=== PATIENT | female | born 1975 | race Caucasian/White ===

== ENCOUNTER 2016-06-21 21:42 | Emergency (ER) | payer MEDICAID ==
[~2016-06-21] VITALS: Ht 160 cm; Wt 77.3 kg
[~2016-06-21 21:42] MED LIST: FERR27TA; PREN-46 PO; PREN1TAB49; pnv PO
[2016-06-21 21:51] VITALS: Ht 160 cm; Wt 77.3 kg
--- NOTE | 2016-06-22 00:40 | RADRPT ---
PROCEDURE: XR Chest. CLINICAL INDICATION: Chest pain. TECHNIQUE: Portable AP upright view of the chest was obtained. COMPARISON: None. FINDINGS: The cardiomediastinal silhouette is within normal limits. The lungs are clear. There is no evidenc e for pleural effusion, pneumothorax or pulmonary vascular congestion. The osseous structures are i ntact with no evidence for acute abnormality. RPTAT:HJJR IMPRESSION: No evidence for acute intrathoracic pathology. Physician Alex Date Time Electronically viewed and signed by Physician Alex on 06/22/2016 00:40 JR/
[2016-06-22 01:10] LABS: URINE BLOOD (Dip) POC 2+ (NEGATIVE)
[2016-06-22 01:19] LABS: ADD SCAN DIFF NO
[2016-06-22 01:28] LABS: BASOPHILS % 0.5 % (0.0-2.0); EOSINOPHILS # 0.2 10^3/ul (0.0-0.5); EOSINOPHILS % 1.9 % (0.0-7.0); HEMATOCRIT 34.8 % (37.0-47.0); HEMOGLOBIN 11.1 g/dl (12.0-16.0); LYMPHOCYTES # 3.3 10^3/ul (0.8-2.9); LYMPHOCYTES % 42.8 % (15.0-51.0); MEAN CORPUSCULAR HEMOGLOBIN 25.1 pg (29.0-33.0); MEAN CORPUSCULAR HGB CONC 31.9 g/dl (32.0-37.0); MEAN CORPUSCULAR VOLUME 78.6 fl (82.0-101.0); MEAN PLATELET VOLUME 11.1 fl (7.4-10.4); MONOCYTE # 0.5 10^3/ul (0.3-0.9); MONOCYTES % 6.5 % (0.0-11.0); NEUTROPHIL # 3.7 10^3/ul (1.6-7.5); PLATELET COUNT 341 10^3/UL (140-415); RED BLOOD COUNT 4.43 10^6/ul (4.20-5.40); WHITE BLOOD COUNT 7.7 10^3/ul (4.8-10.8)
[2016-06-22] MEDS ORDERED: hydrALAzine 20 MG INJ IV ONE (01:30)
[2016-06-22 01:36] LABS: INR 0.94; PROTIME 12.6 Sec (12.2-14.2)
[2016-06-22 01:37] LABS: PARTIAL THROMBOPLASTIN TIME 30.9 Sec (25.0-35.0)
[2016-06-22 01:49] LABS: CHLORIDE 103 mmol/L (97-110); POTASSIUM 3.7 mmol/L (3.5-5.1); SODIUM 144 mmol/L (135-144)
[2016-06-22 01:52] LABS: ANION GAP 15 (8-16); BLOOD UREA NITROGEN 18 mg/dl (7-20); CARBON DIOXIDE 30 mmol/L (21-31); CREATININE 0.88 mg/dl (0.44-1.00); GLUCOSE 106 mg/dl (70-220)
[2016-06-22 01:53] LABS: CALCIUM 9.5 mg/dl (8.4-10.2)
[2016-06-22 02:26] LABS: TROPONIN-I < 0.010 ng/ml (0.00-0.12)
--- NOTE | 2016-06-22 02:26 | ERA ---
ER Documentation Chief Complaint Date/Time DATE: 06/22/16 Chief Complaint chest pain on and off x 1 week HPI The patient is a 40-year-old female, presenting to the ER because of sternal chest discomfort intermittently for more than 1 week. She was seen in the clinic was sent her to the ER because of high blood pressure She had intermittent headache, denies any headache now. She denies facial pain, neck pain, chest pain with exertion or vomiting or diaphoresis. She denies abdominal pain, vomiting, diarrhea, constipation. She does not smoke, drink or use illicit drug Past medical history: Anxiety Past surgical history: 3 C-sections ROS All systems reviewed and are negative except as per history of present illness. Medications Home Meds Active Scripts Amlodipine Besylate* (Norvasc*) 5 Mg Tablet, 5 MG PO DAILY, #30 TAB Prov:KJ SEARS MD 06/22/16 Reported Medications Vit #108/Iron/Fa ( ONE TABLET) 1 Each Tablet, 1 EACH PO 04/11/13 [pnv] No Conflict Check, PO DAILY, #1 04/05/13 Ferrous Sulfate (Iron) 1 Tab Tablet 07/28/10 Vits W-Ca,Fe,Fa(<1MG) () 1 Tab Tablet 07/28/10 Allergies Allergies: Coded Allergies: No Known Allergies (Verified Allergy, Mild, 07/28/10) PMhx/Soc Medical and Surgical Hx: pt denies Medical Hx History of Surgery: Yes ( X3) Anesthesia Reaction: No Hx Neurological Disorder: No Hx Respiratory Disorders: No Hx Cardiac Disorders: Yes (HTN WITH ) Hx Psychiatric Problems: No Hx Miscellaneous Medical Probl: No Hx Alcohol Use: No Hx Substance Use: No Hx Tobacco Use: No Smoking Status: Never smoker Physical Exam Vitals Vital Signs Date Time Temp Pulse Resp B/P Pulse Ox O2 Delivery O2 Flow Rate FiO2 06/22/16 00:38 Nasal Cannula 1 06/22/16 00:20 98.3 70 20 218/114 100 Room Air 06/21/16 21:51 97.8 78 20 175/99 10 Physical Exam Const: No acute distress. Head: Atraumatic. Eyes: Normal Conjunctiva. ENT: Normal External Ears, Nose and Mouth. Neck: Full range of motion. No meningismus. Resp: Clear to auscultation bilaterally. Cardio: Regular rate and rhythm, no murmurs. Abd: Soft, non distended, normal bowel sounds, non tender. Skin: No petechiae or rashes. Back: No midline or flank tenderness. Ext: No cyanosis, or edema. Neur: Awake and alert. No focal deficit Psych: Normal Mood and Affect. Result Diagram: 06/22/16 0030 06/22/16 0030 Results 24 hrs Laboratory Tests Test 06/22/16 00:30 06/22/16 01:12 Activated Partial Thromboplast Time 30.9Sec Anion Gap 15 Basophils # 0.010^3/ul Basophils % 0.5% Blood Urea Nitrogen 18mg/dl Calcium Level 9.5mg/dl Carbon Dioxide Level 30mmol/L Chloride Level 103mmol/L Creatinine 0.88mg/dl Eosinophils # 0.210^3/ul Eosinophils % 1.9% Glucose Level 106mg/dl Hematocrit 34.8% Hemoglobin 11.1g/dl INR International Normalized Ratio 0.94 Lymphocytes # 3.310^3/ul Lymphocytes % 42.8% Mean Corpuscular Hemoglobin 25.1pg Mean Corpuscular Hemoglobin Concent 31.9g/dl Mean Corpuscular Volume 78.6fl Mean Platelet Volume 11.1fl Monocytes # 0.510^3/ul Monocytes % 6.5% Neutrophils # 3.710^3/ul Neutrophils % 48.0% Nucleated Red Blood Cells # 0.010^3/ul Nucleated Red Blood Cells % 0.0/100WBC Platelet Count 59829^3/UL Potassium Level 3.7mmol/L Prothrombin Time 12.6Sec Prothrombin Time Ratio 1.0 Red Blood Count 4.4310^6/ul Red Cell Distribution Width 15.0% Serum HCG, Qualitative NEGATIVE Sodium Level 144mmol/L Troponin I < 0.010ng/ml White Blood Count 7.710^3/ul Bedside Urine Blood 2+ Bedside Urine Glucose (UA) Negative Bedside Urine Ketones (LAB) Negative Bedside Urine Leukocyte Esterase (L Negative Bedside Urine Nitrite (LAB) Negative Bedside Urine Protein (LAB) Negative Bedside Urine pH (LAB) 6.5 Current Medications Medications (Trade) Dose Ordered Sig/June Route PRN Reason Start Time Stop Time Status Last Admin Dose Admin Hydralazine HCl (Apresoline) 5 mg ONCE ONCE IV 06/22/16 01:30 06/22/16 01:31 DC 06/22/16 01:35 Procedures/MDM [place] [id number] Radiology Main Line: [phone] DIAGNOSTIC IMAGING REPORT Patient: CATHERINE WILLIS : 1975 Age: 40 Sex: F MR #: [id number] DOS: 06/22/16 0027 Ordering MD: KJ SEARS MD Location: E/R Room/Bed: PROCEDURE: XR Chest. CLINICAL INDICATION: Chest pain. TECHNIQUE: Portable AP upright view of the chest was obtained. COMPARISON: None. FINDINGS: The cardiomediastinal silhouette is within normal limits. The lungs are clear. There is no evidence for pleural effusion, pneumothorax or pulmonary vascular congestion. The osseous structures are intact with no evidence for acute abnormality. RPTAT:HJJR IMPRESSION: No evidence for acute intrathoracic pathology. Physician Alex Date Time Electronically viewed and signed by Physician Alex on 06/22/2016 00:40 JR/ CC: KJ SEARS MD EKG: Read by emergency physician Rate/Rhythm: Normal Sinus Rhythm 63 beats/min QRS, ST, T-waves: No ST elevation, no T inversion Impression: Normal EKG MEDICAL MAKING DECISION: The patient is a 40-year-old female, presenting with acute elevated blood pressure. She was treated with hydralazine family IV with good response. The differential diagnoses considered include but are not limited to acute anxiety attack, acute panic attack, acute coronary syndrome, acute myocardial infarction, pericarditis, pulmonary embolism, aortic dissection , pneumonia, pleural effusion, pneumothorax, GERD, chest wall pain. Departure Diagnosis: Primary Impression: Hypertension Additional Impression: Anemia Condition: Good Comments She was discharged with Norvasc 5 mg daily I discussed the findings with the patient. I advised the patient to follow-up with the primary physician in about 1-2 days, sooner if needed and return if any concern. KJ SEARS MD Jun 22, 2016 02:26
[2016-06-22] MEDS ORDERED: AMLO5TAB4 PO (02:57)
[2016-06-22 03:04] VITALS: BP 139/86; PULSE 66; RESP 20; TEMP 98.6
== END 2016-06-22 03:05 | disposition home or self-care (01) ==
LOC: E/R 21:42
DX: I10 Essential (primary) hypertension (principal); D64.9 Anemia, unspecified; R40.2142 Coma scale, eyes open, spontaneous, at arrival to emergency department; R40.2252 Coma scale, best verbal response, oriented, at arrival to emergency department; R40.2362 Coma scale, best motor response, obeys commands, at arrival to emergency department
CPT/HCPCS: 36415; 71010; 80048; 81003; 84484; 84703; 85025; 85610; 85730; 93005; 96374; J0360; Z7502

== ENCOUNTER 2016-10-20 17:16 | Emergency (ER) | payer MEDICAID ==
[~2016-10-20] VITALS: Ht 152.4 cm; Wt 81.5 kg
[~2016-10-20 17:16] MED LIST changes: +AMLO5TAB4 PO
[2016-10-20 17:19] VITALS: Ht 152.4 cm; Wt 81.5 kg
[2016-10-20 18:13] VITALS: TEMP 99
[2016-10-20] MEDS ORDERED: AMLO5TAB4 PO (18:17)
[2016-10-20 18:21] LABS: ADD SCAN DIFF NO
[2016-10-20 18:25] LABS: BASOPHILS % 0.5 % (0.0-2.0); EOSINOPHILS # 0.1 10^3/ul (0.0-0.5); EOSINOPHILS % 2.2 % (0.0-7.0); HEMOGLOBIN 9.7 g/dl (12.0-16.0); LYMPHOCYTES # 2.4 10^3/ul (0.8-2.9); LYMPHOCYTES % 37.4 % (15.0-51.0); MEAN CORPUSCULAR HEMOGLOBIN 22.1 pg (29.0-33.0); MEAN CORPUSCULAR HGB CONC 31.3 g/dl (32.0-37.0); MEAN CORPUSCULAR VOLUME 70.6 fl (82.0-101.0); MEAN PLATELET VOLUME 11.3 fl (7.4-10.4); MONOCYTE # 0.6 10^3/ul (0.3-0.9); MONOCYTES % 9.4 % (0.0-11.0); NEUTROPHIL # 3.2 10^3/ul (1.6-7.5); NEUTROPHILS % 50.5 % (39.0-77.0); PLATELET COUNT 353 10^3/UL (140-415); RED BLOOD COUNT 4.39 10^6/ul (4.20-5.40); RED CELL DISTRIBUTION WIDTH 16.3 % (11.5-14.5); WHITE BLOOD COUNT 6.4 10^3/ul (4.8-10.8)
[2016-10-20 18:29] LABS: ADD UMIC YES; UR ASCORBIC ACID NEGATIVE (NEGATIVE); UR BACTERIA FEW /HPF (NONE SEEN); UR BILIRUBIN (Dip) NEGATIVE (NEGATIVE); UR BLOOD (Dip) 3+ mg/dL (NEGATIVE); UR CLARITY CLEAR (CLEAR); UR COLOR YELLOW (YELLOW); UR GLUCOSE (Dip) NEGATIVE (NEGATIVE); UR KETONES (Dip) NEGATIVE (NEGATIVE); UR LEUKOCYTE ESTERASE (Dip) NEGATIVE Leu/ul (NEGATIVE); UR NITRITE (Dip) NEGATIVE (NEGATIVE); UR RBC 2 /HPF (0-5); UR SPECIFIC GRAVITY (Dip) 1.013 (1.003-1.030); UR SQUAMOUS EPITHELIAL CELL FEW /HPF (FEW); UR TOTAL PROTEIN (Dip) NEGATIVE (NEGATIVE); UR UROBILINOGEN (Dip) NEGATIVE (NEGATIVE)
[2016-10-20] MEDS ORDERED: HYDR-902 PO (18:31)
[2016-10-20] MEDS ORDERED: ONDA4TAB14 PO (18:31)
--- NOTE | 2016-10-20 18:39 | RADRPT ---
PROCEDURE: US Abdomen. CLINICAL INDICATION: Right upper quadrant Abdominal pain. TECHNIQUE: Multiple real-time images were acquired of the patient's abdomen and retroperitoneum ut ilizing a high resolution transducer. COMPARISON: None FINDINGS: The liver demonstrates normal echogenicity and size and no focal lesions are seen. The liver measure s 13 cm. No gallstones are identified within the gallbladder. The gallbladder is contracted. There is an inc idental 3.2 mm gallbladder polyp. There is no pericholecystic fluid or gallbladder wall thickening. No intra or extrahepatic biliary dilatation is seen. The common bile duct measures 3 mm in maximal dimension. The pancreas is not seen. The right kidney is unremarkable measuring 9.3 cm. No collecting system dilatation, stone or solid m ass. IMPRESSION: No findings of acute cholecystitis or gallstones. Incidental 3.2 mm gallbladder polyp. Otherwise, negative exam. RPTAT: PP .Vero Manuel MD, MD Date Time Electronically viewed and signed by .Vero aMnuel MD, MD on 10/20/2016 18:39 .F/
--- NOTE | 2016-10-20 18:43 | ERD ---
ER Documentation Chief Complaint Date/Time DATE: 10/20/16 TIME: 18:41 Chief Complaint RUQ pain radiating to RLQ x 1 month, int.; - N/V; - F/C; ? Pica HPI Patient is a 41-year-old female with hypertension who presents with abdominal pain. She has right upper quadrant abdominal pain which radiates to her right lower quadrant. It started 1 month ago. The pain comes and goes. She has had no fevers. She denies nausea, vomiting, or diarrhea. She has had no treatment as of yet. Upon review of old medical records the patient has multiple visits to the ER for various complaints. She does not remember the name of her primary doctor. ROS All systems reviewed and are negative except as per history of present illness. Medications Home Meds Active Scripts Ondansetron (Ondansetron Odt) 4 Mg Tab.rapdis, 4 MG PO Q6H Y for NAUSEA AND/OR VOMITING, #10 TAB Prov:SOPHIE JOSE MD 10/20/16 Hydrocodone/Acetaminophen ([place]ley 10-325 Tablet) 1 Each Tablet, 1 TAB PO Q6H Y for PAIN, #7 TAB Prov:SOPHIE JOSE MD 10/20/16 Reported Medications Amlodipine Besylate* (Norvasc*) 5 Mg Tablet, 5 MG PO DAILY, TAB 10/20/16 Discontinued Reported Medications Vit #108/Iron/Fa ( ONE TABLET) 1 Each Tablet, 1 EACH PO 04/11/13 [pnv] No Conflict Check, PO DAILY, #1 04/05/13 Ferrous Sulfate (Iron) 1 Tab Tablet 07/28/10 Vits W-Ca,Fe,Fa(<1MG) () 1 Tab Tablet 07/28/10 Discontinued Scripts Amlodipine Besylate* (Norvasc*) 5 Mg Tablet, 5 MG PO DAILY, #30 TAB Prov:KJ SEARS MD 06/22/16 Allergies Allergies: Coded Allergies: No Known Allergies (Verified Allergy, Mild, 10/20/16) PMhx/Soc History of Surgery: Yes ( X3) Anesthesia Reaction: No Hx Neurological Disorder: No Hx Respiratory Disorders: No Hx Cardiac Disorders: Yes (HTN WITH ) Hx Psychiatric Problems: No Hx Miscellaneous Medical Probl: No Hx Alcohol Use: No Hx Substance Use: No Hx Tobacco Use: No Smoking Status: Never smoker FmHx Family History: No diabetes Physical Exam Vitals Vital Signs Date Time Temp Pulse Resp B/P Pulse Ox O2 Delivery O2 Flow Rate FiO2 10/20/16 18:13 99.0 88 12 150/92 98 Room Air 10/20/16 17:19 99.0 88 17 214/116 99 Physical Exam Const: No acute distress Head: Atraumatic Eyes: Normal Conjunctiva ENT: Normal External Ears, Nose and Mouth. Neck: Full range of motion..~ No meningismus. Resp: Clear to auscultation bilaterally Cardio: Regular rate and rhythm, no murmurs Abd: Soft, non tender, non distended. Normal bowel sounds Skin: No petechiae or rashes Back: No midline or flank tenderness Ext: No cyanosis, or edema Neur: Awake and alert Psych: Normal Mood and Affect Result Diagram: 10/20/161807 Results 24 hrs Laboratory Tests Test 10/20/16 18:08 White Blood Count 6.410^3/ul Red Blood Count 4.3910^6/ul Hemoglobin 9.7g/dl Hematocrit 31.0% Mean Corpuscular Volume 70.6fl Mean Corpuscular Hemoglobin 22.1pg Mean Corpuscular Hemoglobin Concent 31.3g/dl Red Cell Distribution Width 16.3% Platelet Count 76457^3/UL Mean Platelet Volume 11.3fl Neutrophils % 50.5% Lymphocytes % 37.4% Monocytes % 9.4% Eosinophils % 2.2% Basophils % 0.5% Nucleated Red Blood Cells % 0.0/100WBC Neutrophils # 3.210^3/ul Lymphocytes # 2.410^3/ul Monocytes # 0.610^3/ul Eosinophils # 0.110^3/ul Basophils # 0.010^3/ul Nucleated Red Blood Cells # 0.010^3/ul Urine Color YELLOW Urine Clarity CLEAR Urine pH 5.0 Urine Specific [place] 1.013 Urine Ketones NEGATIVEmg/dL Urine Nitrite NEGATIVEmg/dL Urine Bilirubin NEGATIVEmg/dL Urine Urobilinogen NEGATIVEmg/dL Urine Leukocyte Esterase NEGATIVELeu/ul Urine Microscopic RBC 2/HPF Urine Microscopic WBC 2/HPF Urine Squamous Epithelial Cells FEW/HPF Urine Bacteria FEW/HPF Urine Hemoglobin 3+mg/dL Urine Glucose NEGATIVEmg/dL Urine Total Protein NEGATIVEmg/dl Procedures/MDM Gallbladder ultrasound shows no acute cholecystitis per radiology. Ultrasound of the pelvis is pending at this time. CMP and lipase are pending at this time. Patient is a 41-year-old female presents with abdominal pain for 1 month. Urine test is negative and I doubt or ectopic . CBC shows anemia but no leukocytosis. Ultrasound of the gallbladder shows no cholecystitis. CMP and lipase are pending. The patient has anemia but does not require transfusion. At this point I doubt cholecystitis, appendicitis, or bowel obstruction. The patient will be sent to the oncoming physician who will follow up on the ultrasound of the pelvis as well as the CMP and lipase. I believe the patient will likely be stable for outpatient management and a prescription will be given for a short course of Gridley and Zofran for systematic relief. She will need to follow-up with her primary doctor tomorrow for evaluation. Departure Diagnosis: Primary Impression: Hypertension Hypertension type: essential hypertension Qualified Code: I10 - Essential hypertension Additional Impressions: Abdominal pain Abdominal location: unspecified location Qualified Code: R10.9 - Abdominal pain, unspecified location Anemia Anemia type: unspecified type Qualified Code: D64.9 - Anemia, unspecified type Condition: Fair Patient Instructions: Abdominal Pain Referrals: Your doctor Additional Instructions: Llame al doctor MAANA y wojciech gayla LIAT PARA DENTRO DE 1-2 AGUIRRE.Dgale a la secretaria que nosotros le instruimos hacer esta lita.Avise o llame si otto condicin se empeora antes de la lita. Regresa aqui si peor o no mejor. SOPHIE JOSE MD Oct 20, 2016 18:43
[2016-10-20 18:46] LABS: ALBUMIN 4.7 g/dl (3.3-4.9); ALBUMIN/GLOBULIN RATIO 1.74; BILIRUBIN,INDIRECT 0.1 mg/dl (0-1.1); BILIRUBIN,TOTAL 0.1 mg/dl (0.2-1.3); CREATININE 1.31 mg/dl (0.44-1.00); POTASSIUM 3.4 mmol/L (3.5-5.1); TOTAL PROTEIN 7.4 g/dl (6.1-8.1)
--- NOTE | 2016-10-20 18:57 | RADRPT ---
PROCEDURE: US Pelvis. CLINICAL INDICATION: Pelvic pain and right lower quadrant pain. TECHNIQUE: The pelvis was evaluated with transabdominal sonography in the axial and sagittal plane s. COMPARISON: No prior study is available for comparison. FINDINGS: Uterus: 10.0 x 5.1 x 7.3 cm. Endometrium: 6.1 mm. Right ovary: 3.3 x 1.7 x 3.3 cm. Left ovary: 3.3 x 1.9 x 2.5 cm. Uterine masses: None. Ovarian masses: None. Color Doppler and pulsed Doppler sonography demonstrate normal flow to the ova katharine. Other pelvic masses: None. Free fluid: None. IMPRESSION: 1. Normal pelvic ultrasound. RPTAT: QQ .Ruy Jackson MD, MD Date Time Electronically viewed and signed by .Ruy Jackson MD, on 10/20/2016 18:57 .R/
[2016-10-20 19:05] VITALS: BP 155/87; PULSE 67; RESP 18
== END 2016-10-20 19:05 | disposition home or self-care (01) ==
LOC: E/R 17:16
DX: I10 Essential (primary) hypertension (principal); D64.9 Anemia, unspecified; R10.2 Pelvic and perineal pain
CPT/HCPCS: 36415; 76705; 76856; 80053; 81001; 83690; 85025; 93005; Z7502

== ENCOUNTER 2016-11-14 20:43 | Emergency (ER) | payer MEDICAID ==
[~2016-11-14] VITALS: Ht 162.6 cm; Wt 81.0 kg
[~2016-11-14 20:43] MED LIST changes: -FERR27TA; +HYDR-902 PO; +ONDA4TAB14 PO; -PREN-46 PO; -PREN1TAB49; -pnv PO
[2016-11-14 20:53] VITALS: Ht 162.6 cm; Wt 81.0 kg
[2016-11-14] MEDS ORDERED: SOD CHLORIDE 0.9% 1,000 ML IV STA (23:01)
--- NOTE | 2016-11-14 23:11 | ERD ---
ER Documentation Chief Complaint Date/Time DATE: 11/14/16 TIME: 23:08 Chief Complaint extended period of menstruation x 2 months molly dn of HPI 29-year-old female presents to emergency department for complaints of prolonged menstruation, patient started to have vaginal bleeding first week of September, has been seen here in emergency department, had an ultrasound done, patient is currently on medroxyprogesterone for control of her vaginal bleeding, it is only helped a little bit. Patient complaining of pelvic pain and cramping pain for 4/10 scale, accompanying the symptoms. ROS All systems reviewed and are negative except as per history of present illness. Medications Home Meds Active Scripts Ondansetron (Ondansetron Odt) 4 Mg Tab.rapdis, 4 MG PO Q6H Y for NAUSEA AND/OR VOMITING, #10 TAB Prov:SOPHIE JOSE MD 10/20/16 Hydrocodone/Acetaminophen ([place] 10-325 Tablet) 1 Each Tablet, 1 TAB PO Q6H Y for PAIN, #7 TAB Prov:SOPHIE JOSE MD 10/20/16 Reported Medications Amlodipine Besylate* (Norvasc*) 5 Mg Tablet, 5 MG PO DAILY, TAB 10/20/16 Allergies Allergies: Coded Allergies: No Known Allergies (Verified Allergy, Mild, 11/14/16) PMhx/Soc History of Surgery: Yes ( X3) Anesthesia Reaction: No Hx Neurological Disorder: No Hx Respiratory Disorders: No Hx Cardiac Disorders: Yes (HTN WITH ) Hx Psychiatric Problems: No Hx Miscellaneous Medical Probl: No Hx Alcohol Use: No Hx Substance Use: No Hx Tobacco Use: No Physical Exam Vitals Vital Signs Date Time Temp Pulse Resp B/P Pulse Ox O2 Delivery O2 Flow Rate FiO2 11/14/16 20:53 98.2 66 20 136/61 99 Physical Exam GENERAL: The patient is well developed and appropriate for usual state of health, in no apparent distress. CHEST: Clear to auscultation bilaterally. There are no rales, wheezes or rhonchi. HEART: Regular rate and rhythm. No murmurs, clicks, rubs or gallops. No S3 or S4. ABDOMEN: Soft, nontender and nondistended. Good bowel sounds. No rebound or guarding. No gross peritonitis. No gross organomegaly or masses. No William sign or McBurney point tenderness. BACK: No midline or flank tenderness. EXTREMITIES: Equal pulses bilaterally. There is no peripheral clubbing, cyanosis or edema. No focal swelling or erythema. Full range of motion. Grossly neurovascularly intact. NEURO: Alert and oriented. Cranial nerves 2-12 intact. Motor strength in all 4 extremities with 5/5 strength. Sensation grossly intact. Normal speech and gait. SKIN: There is no apparent rash or petechia. The skin is warm and dry. HEMATOLOGIC AND LYMPHATIC: There is no evidence of excessive bruising or lymphedema. No gross cervical, axillary, or inguinal lymphadenopathy. Result Diagram: 11/14/16 0736 11/14/16 2323 Results 24 hrs Laboratory Tests Test 11/14/16 07:36 11/14/16 23:23 White Blood Count 9.010^3/ul Red Blood Count 4.6410^6/ul Hemoglobin 10.0g/dl Hematocrit 31.8% Mean Corpuscular Volume 68.5fl Mean Corpuscular Hemoglobin 21.6pg Mean Corpuscular Hemoglobin Concent 31.4g/dl Red Cell Distribution Width 17.2% Platelet Count 09480^3/UL Mean Platelet Volume 10.3fl Neutrophils % 50.6% Lymphocytes % 39.0% Monocytes % 7.6% Eosinophils % 2.2% Basophils % 0.4% Nucleated Red Blood Cells % 0.0/100WBC Neutrophils # 4.610^3/ul Lymphocytes # 3.510^3/ul Monocytes # 0.710^3/ul Eosinophils # 0.210^3/ul Basophils # 0.010^3/ul Nucleated Red Blood Cells # 0.010^3/ul Urine Color YELLOW Urine Clarity CLEAR Urine pH 5.0 Urine Specific [place] 1.013 Urine Ketones NEGATIVEmg/dL Urine Nitrite NEGATIVEmg/dL Urine Bilirubin NEGATIVEmg/dL Urine Urobilinogen NEGATIVEmg/dL Urine Leukocyte Esterase TRACELeu/ul Urine Microscopic RBC 121/HPF Urine Microscopic WBC 6/HPF Urine Bacteria FEW/HPF Urine Hemoglobin 3+mg/dL Urine Glucose NEGATIVEmg/dL Urine Total Protein NEGATIVEmg/dl Sodium Level 142mmol/L Potassium Level 3.4mmol/L Chloride Level 96mmol/L Carbon Dioxide Level 29mmol/L Anion Gap 20 Blood Urea Nitrogen 14mg/dl Creatinine 0.96mg/dl Glucose Level 101mg/dl Calcium Level 9.5mg/dl Total Bilirubin 0.4mg/dl Direct Bilirubin 0.00mg/dl Indirect Bilirubin 0.4mg/dl Aspartate Amino Transf (AST/SGOT) 31IU/L Alanine Aminotransferase (ALT/SGPT) 38IU/L Alkaline Phosphatase 105IU/L Total Protein 8.1g/dl Albumin 4.5g/dl Globulin 3.60g/dl Albumin/Globulin Ratio 1.25 Beta HCG, Quantitative < 2.4mIU/ml Current Medications Medications (Trade) Dose Ordered Sig/June Route PRN Reason Start Time Stop Time Status Last Admin Dose Admin Sodium Chloride (NS) 1,000 ml @ 1,000 mls/hr Q1H STAT IV 11/14/16 23:01 11/15/16 00:00 DC 11/14/16 23:29 Normal saline IV bolus was given here in emergency department for rehydration, patient tolerated IV fluids. PROCEDURE: US Pelvis. CLINICAL INDICATION: Pelvic pain and right lower quadrant pain. TECHNIQUE: The pelvis was evaluated with transabdominal sonography in the axial and sagittal planes. COMPARISON: No prior study is available for comparison. FINDINGS: Uterus: 10.0 x 5.1 x 7.3 cm. Endometrium: 6.1 mm. Right ovary: 3.3 x 1.7 x 3.3 cm. Left ovary: 3.3 x 1.9 x 2.5 cm. Uterine masses: None. Ovarian masses: None. Color Doppler and pulsed Doppler sonography demonstrate normal flow to the ovaries. Other pelvic masses: None. Free fluid: None. IMPRESSION: 1. Normal pelvic ultrasound. RPTAT: QQ .Ruy Jackson MD, MD Date Time Electronically viewed and signed by .Ruy Jackson MD, MD on 10/20/2016 18:57 .R/ CC: SOPHIE JOSE MD Procedures/MDM Medical Decision Making: Patients vaginal bleeding is most likely consistent of dysfunctional uterine bleeding. Patient does not show any evidence of hypovolemic shock. Patients hemoglobin and hematocrit is stable. There is low suspicion for ectopic . NINO results does not show any abnormality. No fibroids noted. It was done 1 month ago when she had the same symptoms, repeat ultrasound is not indicated at this time. There is no signs of symptoms of dehydration. There is low suspicion for sepsis. Patient appearswell and is hemodynamically stable. Patient has urinary tract infection was noted, and will be treated. No symptoms of pyelonephritis. Disposition: Home. Condition: Stable Prescription: Ibuprofen, Ferrous Sulfate, Colace, Keflex Instructions: Patient is advised to do bed rest, avoid heavy lifting, and avoid having sex until cleared by OB doctor. Patient is advised to follow up with OB doctor for further management. Patient is advised that is symptoms are worst, severe bleeding, dizziness, severe abdominal pain, fever, worst signs and symptoms to return to the emergency department immediately. Disclaimer: Inadvertent spelling and grammatical errors are likely due to EHR/ dictation software use and do not reflect on the overall quality of patient care. Also, please note that the electronic time recorded on this note does not necessarily reflect the actual time of the patient encounter. Departure Diagnosis: Primary Impression: Vaginal bleeding Condition: Stable Patient Instructions: Dysfunctional Uterine Bleeding Additional Instructions: Patient is advised to do bed rest, avoid heavy lifting, and avoid having sex until cleared by OB doctor. Patient is advised to follow up with OB doctor for further management. Patient is advised that is symptoms are worst, severe bleeding, dizziness, severe abdominal pain, fever, worst signs and symptoms to return to the emergency department immediately. ROLAN SWEET NP Nov 14, 2016 23:11
[2016-11-14 23:31] LABS: ADD SCAN DIFF NO
[2016-11-14 23:33] LABS: BASOPHILS % 0.4 % (0.0-2.0); EOSINOPHILS # 0.2 10^3/ul (0.0-0.5); EOSINOPHILS % 2.2 % (0.0-7.0); HEMATOCRIT 31.8 % (37.0-47.0); LYMPHOCYTES # 3.5 10^3/ul (0.8-2.9); MEAN CORPUSCULAR HEMOGLOBIN 21.6 pg (29.0-33.0); MEAN CORPUSCULAR HGB CONC 31.4 g/dl (32.0-37.0); MEAN CORPUSCULAR VOLUME 68.5 fl (82.0-101.0); MEAN PLATELET VOLUME 10.3 fl (7.4-10.4); MONOCYTE # 0.7 10^3/ul (0.3-0.9); MONOCYTES % 7.6 % (0.0-11.0); NEUTROPHIL # 4.6 10^3/ul (1.6-7.5); NEUTROPHILS % 50.6 % (39.0-77.0); PLATELET COUNT 396 10^3/UL (140-415); RED BLOOD COUNT 4.64 10^6/ul (4.20-5.40); RED CELL DISTRIBUTION WIDTH 17.2 % (11.5-14.5)
[2016-11-14 23:47] LABS: ADD UMIC YES; UR ASCORBIC ACID NEGATIVE (NEGATIVE); UR BACTERIA FEW /HPF (NONE SEEN); UR BILIRUBIN (Dip) NEGATIVE (NEGATIVE); UR BLOOD (Dip) 3+ mg/dL (NEGATIVE); UR CLARITY CLEAR (CLEAR); UR COLOR YELLOW (YELLOW); UR GLUCOSE (Dip) NEGATIVE (NEGATIVE); UR KETONES (Dip) NEGATIVE (NEGATIVE); UR LEUKOCYTE ESTERASE (Dip) TRACE Leu/ul (NEGATIVE); UR NITRITE (Dip) NEGATIVE (NEGATIVE); UR RBC 121 /HPF (0-5); UR SPECIFIC GRAVITY (Dip) 1.013 (1.003-1.030); UR TOTAL PROTEIN (Dip) NEGATIVE (NEGATIVE); UR UROBILINOGEN (Dip) NEGATIVE (NEGATIVE)
[2016-11-14 23:53] LABS: ALBUMIN 4.5 g/dl (3.3-4.9); ALBUMIN/GLOBULIN RATIO 1.25; BILIRUBIN,INDIRECT 0.4 mg/dl (0-1.1); BILIRUBIN,TOTAL 0.4 mg/dl (0.2-1.3); CALCIUM 9.5 mg/dl (8.4-10.2); CREATININE 0.96 mg/dl (0.44-1.00); POTASSIUM 3.4 mmol/L (3.5-5.1); TOTAL PROTEIN 8.1 g/dl (6.1-8.1)
[2016-11-15] MEDS ORDERED: TRAM50TA2 PO (01:27)
[2016-11-15] MEDS ORDERED: IBUP-1542 PO (01:27)
[2016-11-15] MEDS ORDERED: FER325 PO (01:27)
[2016-11-15] MEDS ORDERED: DOCU-144 PO (01:27)
[2016-11-15 01:49] VITALS: BP 147/83; PULSE 62; RESP 18
== END 2016-11-15 01:54 | disposition home or self-care (01) ==
LOC: FTE 20:43
DX: N93.9 Abnormal uterine and vaginal bleeding, unspecified (principal); R10.2 Pelvic and perineal pain
CPT/HCPCS: 80053; 81001; 84702; 85025; 86850; 86900; 86901; J7030; 36415

== ENCOUNTER 2017-05-03 20:16 | Emergency (ER) | END 2017-05-04 17:50 | disposition home or self-care (01) ==

== ENCOUNTER 2017-05-17 00:44 | Emergency (ER) | END 2017-05-17 05:37 | disposition home or self-care (01) ==

== ENCOUNTER 2018-02-10 04:07 | Emergency (ER) | END 2018-02-10 08:17 | disposition home or self-care (01) ==

== ENCOUNTER 2018-06-28 11:05 | Emergency (ER) | payer MEDICAID ==
[~2018-06-28] VITALS: Ht 152.4 cm; Wt 78.3 kg
[~2018-06-28 11:05] MED LIST changes: -HYDR-902 PO; +HYDR25TA6 PO; +NAPR-985 PO; -ONDA4TAB14 PO
[2018-06-28 11:09] VITALS: Ht 152.4 cm; Wt 78.3 kg
[2018-06-28] MEDS ORDERED: SOD CHLORIDE 0.9% 1,000 ML IV STA (11:30)
[2018-06-28] MEDS ORDERED: ONDANSETRON 4 MG INJ IV STA (11:30)
--- NOTE | 2018-06-28 11:32 | ERD ---
ER Documentation Chief Complaint Chief Complaint DIZZINESS X 2 DAYS. PT A&OX4 NO NEURO DEFICITS HPI 42-year-old woman complains of dizziness times 2 days, she has had no syncope, no fevers or chills, no headache, no vomiting or diarrhea, no chest pain or shortness of breath. Patient states she has had similar symptoms in the past that resolved spontaneously. Patient denies slurred speech, gait ataxia, or weakness in her arms or hands. ROS All systems reviewed and are negative except as per history of present illness. Medications Home Meds Active Scripts Meclizine Hcl* (Antivert*) 12.5 Mg Tab, 25 MG PO Q6H PRN for DIZZINESS, #20 TAB Prov:AUNG CHIRINOS MD 06/28/18 Amlodipine Besylate* (Amlodipine Besylate*) 2.5 Mg Tablet, 5 MG PO DAILY, #30 TAB Prov:AUNG CHIRINOS MD 06/28/18 Hydrochlorothiazide* (Hydrochlorothiazide*) 25 Mg Tab, 25 MG PO DAILY, #30 TAB Prov:RACH CHI MD 02/10/18 Naproxen* (Naprosyn*) 500 Mg Tablet, 500 MG PO BID PRN for PAIN AND/OR INFLAMMATION, #30 TAB Prov:RACH CHI MD 02/10/18 Reported Medications Amlodipine Besylate* (Norvasc*) 5 Mg Tablet, 5 MG PO DAILY, TAB 10/20/16 Allergies Allergies: Coded Allergies: No Known Allergies (Verified Allergy, Mild, 02/10/18) PMhx/Soc Hypertension History of Surgery: Yes ( X3) Anesthesia Reaction: No Hx Neurological Disorder: No Hx Respiratory Disorders: No Hx Cardiac Disorders: Yes (HTN) Hx Psychiatric Problems: No Hx Miscellaneous Medical Probl: No Hx Alcohol Use: No Hx Substance Use: No Hx Tobacco Use: No FmHx Family History: No diabetes Physical Exam Vitals Vital Signs Date Temp Pulse Resp B/P (MAP) Pulse Ox O2 O2 Flow FiO2 Time Delivery Rate 06/28/18 82 17 132/82 100 Room Air 13:34 (99) 06/28/18 98.0 83 17 138/80 100 Room Air 12:53 (99) 06/28/18 98.2 78 17 168/69 100 11:09 (102) Physical Exam GENERAL: Well-developed, well-nourished, well-hydrated, in no apparent distress, looks nontoxic in appearance HEENT: Moist mucous membranes, pink conjunctiva, no cervical spine tenderness or step-off deformities, no goiter, no jaundice or icterus, extraocular movements intact without pain. No submandibular induration, and no pharyngeal erythema NEURO: Alert and oriented 3, cranial nerves II through XII intact bilaterally, pupils equal round reactive to light, no focal deficits or facial asymmetry, sensation intact distally Strength 5/5 in upper and lower extremities bilaterally CARDIAC: Regular rate and rhythm, no murmurs rubs or gallops LUNGS: Clear bilaterally no wheezing crackles or stridor ABDOMEN: Soft nontender, no guarding, no rigidity, no rebound, no psoas sign no obturator sign. Normoactive bowel sounds SKIN: Warm and dry to touch, no abrasions, contusions, or hematomas, no lacerations, no ecchymosis, no target lesions, and without ulcers EXTREMITIES: No clubbing cyanosis or edema, calves are bilaterally symmetrical, no Homans sign, no popliteal cord sign. Distal pulses equal and bilateral PSYCH: Normal affect without agitation or irritability Result Diagram: 06/28/18 1149 06/28/18 1149 Results 24 hrs Laboratory Tests Test 06/28/18 11:49 White Blood Count 8.2 10^3/ul Red Blood Count 4.99 10^6/ul Hemoglobin 13.9 g/dl Hematocrit 41.4 % Mean Corpuscular Volume 83.0 fl Mean Corpuscular Hemoglobin 27.9 pg Mean Corpuscular Hemoglobin Concent 33.6 g/dl Red Cell Distribution Width 13.3 % Platelet Count 309 10^3/UL Mean Platelet Volume 10.7 fl Immature Granulocytes % 0.200 % Neutrophils % 77.5 % Lymphocytes % 16.3 % Monocytes % 5.0 % Eosinophils % 0.6 % Basophils % 0.4 % Nucleated Red Blood Cells % 0.0 /100WBC Immature Granulocytes # 0.020 10^3/ul Neutrophils # 6.4 10^3/ul Lymphocytes # 1.3 10^3/ul Monocytes # 0.4 10^3/ul Eosinophils # 0.1 10^3/ul Basophils # 0.0 10^3/ul Nucleated Red Blood Cells # 0.0 10^3/ul Urine Color YELLOW Urine Clarity CLEAR Urine pH 5.0 Urine Specific [place] 1.013 Urine Ketones NEGATIVE mg/dL Urine Nitrite NEGATIVE mg/dL Urine Bilirubin NEGATIVE mg/dL Urine Urobilinogen NEGATIVE mg/dL Urine Leukocyte Esterase NEGATIVE Marco A/ul Urine Hemoglobin NEGATIVE mg/dL Urine Glucose NEGATIVE mg/dL Urine Total Protein NEGATIVE mg/dl Sodium Level 142 mmol/L Potassium Level 3.4 mmol/L Chloride Level 101 mmol/L Carbon Dioxide Level 29 mmol/L Anion Gap 12 Blood Urea Nitrogen 13 mg/dl Creatinine 0.84 mg/dl Est Glomerular Filtrat Rate mL/min > 60 mL/min Glucose Level 124 mg/dl Calcium Level 9.9 mg/dl Total Bilirubin 0.6 mg/dl Direct Bilirubin 0.00 mg/dl Indirect Bilirubin 0.6 mg/dl Aspartate Amino Transf (AST/SGOT) 35 IU/L Alanine Aminotransferase (ALT/SGPT) 15 IU/L Alkaline Phosphatase 118 IU/L Troponin I < 0.012 ng/ml Total Protein 8.5 g/dl Albumin 4.8 g/dl Globulin 3.70 g/dl Albumin/Globulin Ratio 1.29 Lipase 84 U/L Current Medications Medications Dose Sig/June Start Time Status Last (Trade) Ordered Route PRN Stop Time Admin Dose Reason Admin Sodium 1,000 ml @ Q1H STAT 06/28/18 DC 06/28/18 Chloride 1,000 mls/hr IV 11:30 06/28/18 11:57 12:29 Ondansetron 4 mg ONCE STAT 06/28/18 DC 06/28/18 HCl (Zofran IV 11:30 06/28/18 11:57 Inj) 11:31 Procedures/[facility] IV line was established patient was placed on security monitor rhythm strip rev ealed a sinus rhythm at about 80 bpm with upright P and T waves. Patient was afebrile EKG performed, read by me revealed a normal sinus rhythm at 75 bpm, normal axis, narrow QRS complex, no concerning ST elevations or depressions noted. I administered 1 L normal saline IV, Zofran 4 mg IV for her dizziness. CBC and electrolytes were normal, liver function tests were normal, troponin was negative, urinalysis is negative for infection. Differential diagnoses considered, included but not limited to acute coronary syndrome, pulmonary embolism, aortic dissection, abdominal aortic aneurysm, seps is, stroke, meningitis, encephalitis, pneumonia, appendicitis, cholecystitis, bowel obstruction, pyelonephritis, nephrolithiasis, cystitis, as well as metabolic, hematologic, and electrolyte abnormalities. As well as abscess, cellulitis, fractures, and dislocations. Patient feels much better at this time, and vital signs are normal, symptoms have improved. I did give strict instructions to return to the ED if symptoms continue or worsen, patient will otherwise follow-up with primary care physic lakeisha. Patient understood instructions and agreed to plan. Disclaimer: Inadvertent spelling and grammatical errors are likely due to EHR/dictation software use and do not reflect on the overall quality of patient care. Also, please note that the electronic time recorded on this note does not necessarily reflect the actual time of the patient encounter. Departure Diagnosis: Primary Impression: Dizziness Condition: Good AUNG CHIRINOS MD Jun 28, 2018 11:32
[2018-06-28] MEDS ORDERED: AMLO2.5T78 PO (13:05)
[2018-06-28] MEDS ORDERED: MECL12.574 PO (13:05)
[2018-06-28 13:34] VITALS: BP 132/82; PULSE 82; RESP 17
== END 2018-06-28 13:36 | disposition home or self-care (01) ==
LOC: E/R 11:05
DX: R42 Dizziness and giddiness (principal); I10 Essential (primary) hypertension
CPT/HCPCS: 36415; 80053; 81003; 83690; 84484; 85025; 93005; 96374; J2405; J7030; Z7502